=== PATIENT | male | born 1970 | race American Indian/Alaskan Native ===

== ENCOUNTER 2019-02-10 19:07 | Emergency (ER) | payer OTHER ==
[2019-02-10 19:32] LABS: Basophils % (Auto) 0.6 % (0.0-1.8); Eosinophils # (Auto) 0.1 K/mm3 (0.0-0.4); Eosinophils % (Auto) 2.8 % (0.0-4.3); Hematocrit 46.5 % (35.5-45.6); Hemoglobin 15.5 gm/dl (11.8-15.2); Lymphocytes # (Auto) 2.3 K/mm3 (1.2-5.4); Lymphocytes % (Auto) 45.2 % (13.4-35.0); Mean Corpuscular HGB Conc 33 % (32-34); Mean Corpuscular Volume 88 fl (84-94); Monocytes # (Auto) 0.4 K/mm3 (0.0-0.8); Monocytes % (Auto) 7.4 % (0.0-7.3); Platelet Count 123 K/mm3 (140-440); Red Cell Distribution Width 13.1 % (13.2-15.2)
--- NOTE | 2019-02-10 19:35 | Cat Scan Report ---
PROCEDURE: CT HEAD/BRAIN WO CON TECHNIQUE: Computerized tomography of the head was performed without contrast material. CT DOSE LENGTH PRODUCT: 1048.5 mGycm HISTORY: stroke like symtoms COMPARISONS: None . FINDINGS: Brain: Brain density appears normal. No evidence of intracranial hemorrhage. No parenchymal hemorr anurag, mass lesions or mass effect are seen. No abnormal extra-axial fluid collects or masses are see n. Ventricles: Ventricles are normal size and are midline. Bone Windows: No evidence of skull fracture. Paranasal sinuses: Clear. Mastoid air cells: Clear. IMPRESSION: Negative exam. . If symptoms persist or worsen consider follow-up CT scan or MRI of the brain for fur ther evaluation. This document is electronically signed by David Bernal MD., February 10 2019 07:33:40 PM ET
[2019-02-10] MEDS ORDERED: ACTIVASE IV ONE ×2 (19:37→19:39)
[2019-02-10] MEDS ORDERED: NACL 0.9% IV ONE (19:37)
[2019-02-10] MEDS ORDERED: ACTIVASE ONE (19:40)
[2019-02-10 19:45] LABS: INR 0.93 (0.87-1.13)
[2019-02-10 19:46] LABS: Partial Thromboplastin Time 29.2 Sec. (24.2-36.6)
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
[2019-02-10 20:05] LABS: BUN/Creatinine Ratio 11; Blood Urea Nitrogen 18 mg/dL (9-20); Hemolysis Index 9
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
--- NOTE | 2019-02-10 20:56 | Cat Scan Report ---
PROCEDURE: CT angiogram neck with contrast. TECHNIQUE: Computerized tomographic angiography of the neck was performed after the IV injection of iodinated nonionic contrast including image processing. The image data was postprocessed using 2-dime nsional multiplanar reformatted (MPR) and 3-dimensional (MIP and/or volume rendered) techniques. CT DOSE LENGTH PRODUCT: Not provided mGycm HISTORY: Acute cerebrovascular accident, left hemiparesthesias. COMPARISONS: None. Note: Assessment of carotid artery stenosis is based on measurement of the distal internal carotid a rtery diameter as the denominator for stenosis calculations and the [place] Symptomatic Caroti d Endarterectomy Trial (NASCET) stenosis criteria. FINDINGS: The origins of the innominate artery, left common carotid artery and left subclavian artery are widel y patent. Both common carotid arteries are widely patent. Both carotid artery bifurcations are widely patent. There is no narrowing of the internal nor external carotid arteries. There are no signs of a n internal carotid artery dissection. Both vertebral arteries are patent with the left vertebral bein g dominant. The soft tissues of the neck appear normal. The bones appear intact. There is marked 2 mu cus retention cysts in the left maxillary sinus. IMPRESSION: No significant arterial abnormality identified. This document is electronically signed by Nestor Landeros MD., February 10 2019 08:55:15 PM ET
--- NOTE | 2019-02-10 21:05 | Cat Scan Report ---
PROCEDURE: CT angiogram head with contrast. TECHNIQUE: Computerized tomographic angiography of the head was performed after the IV injection of iodinated nonionic contrast including image processing. The image data was postprocessed using 2-dim ensional multiplanar reformatted (MPR) and 3-dimensional (MIP and/or volume rendered) techniques. CT DOSE LENGTH PRODUCT: Not provided mGycm HISTORY: Acute cerebrovascular accident, left hemiparesis. COMPARISONS: None. FINDINGS: Both distal internal carotid arteries are patent. Both anterior cerebral arteries are patent. The ant erior communicating artery is patent. There is an abrupt occlusion in the right middle cerebral arter y. This is best seen on image 24 of series 2. This is consistent with an acute embolus or acute throm bosis. The left middle cerebral artery is patent. The right posterior communicating artery is patent. The left posterior communicating artery is not visible. Both distal vertebral arteries are patent. T he left vertebral is dominant. Both posterior inferior cerebellar arteries are patent. The basilar ar kari is patent. I believe both superior cerebellar arteries are patent, although the right sided ramin ry appears very small. Both superior cerebellar arteries are patent. There are no signs of aneurysm d isease. There is no evidence of a vasculitis. IMPRESSION: Abrupt occlusion of the proximal right middle cerebral artery. Very small right superior cerebellar artery. This document is electronically signed by Nestor Landeros MD., February 10 2019 09:03:35 PM ET
[2019-02-10] MEDS ORDERED: MORPHINE ONE (21:19)
[2019-02-10] MEDS ORDERED: MORPHINE IV ONE (21:21)
[2019-02-10 22:02] VITALS: BP 155/91
== END 2019-02-10 22:45 | disposition other institution (70) ==
LOC: ED 19:07
DX: I63.9 Cerebral infarction, unspecified (principal); I10 Essential (primary) hypertension; Z92.82 Status post administration of tPA (rtPA) in a different facility within the last 24 hours prior to admission to current facility
CPT/HCPCS: 36415; 37212; 70450; 70496; 70498; 71045; 80048; 84484; 85025; 85610; 85670; 85730; 93005; 93010; 96361; 96374; 99285; J2270; J2997; Q9967